=== PATIENT | female | born 1950 | race Caucasian/White ===

== ENCOUNTER 2017-02-15 10:41 | Outpatient (CLI) | payer MEDICARE ==
--- NOTE | 2017-03-10 09:16 | MMO ---
BILATERAL SCREENING MAMMOGRAM: Date: 02/15/17 INDICATION: Annual exam. COMPARISON: None available. Outside mammograms were not received and are unavailable for comparison. FINDINGS: This will serve as the patient's new baseline examination at [facility]. Interpretation of this exam was assisted with computer-aided detection. There is a 1.5 cm spiculated mass seen within the left breast 9 o'clock position, posterior depth. Th ere is a focal region of architectural distortion seen within the right breast 9 o'clock position, an terior depth. There are benign scattered densities bilaterally. There are benign-appearing calcifications bilateral ly. There are small intramammary lymph nodes seen within the upper outer aspects of both breasts. IMPRESSION: BIRADS 0: Incomplete: Need Additional Imaging Evaluation and/or Prior Mammograms for Comparison There is a spiculated mass within the left breast 9 o'clock position, posterior depth, measuring 1.5 cm, that is suspicious. Recommend additional spot magnification compression view in the CC and MLO pr ojection. One ML projection is also recommended of the left breast. Ultrasound will likely be necessa ry for additional characterization. There is a focal area of architectural distortion seen within the right breast 9 o'clock position, an terior depth. There are numerous surrounding benign-appearing densities throughout the right breast. This is adjacent to this area of architectural distortion and may reflect adjacent cysts. Spot magnif ication compression views in the CC and MLO projection within this location is recommended. A LM proj ection of the right breast would be helpful. Ultrasound may be necessary for further evaluation. The facility will notify the patient of the need for additional imaging services. POS: YUDY
== END 2017-02-15 10:42 | disposition home or self-care (01) ==
LOC: MAMMO 10:41
PROVIDERS: ATTEND Family Medicine
DX: Z12.31 Encounter for screening mammogram for malignant neoplasm of breast (principal); N63.20 Unspecified lump in the left breast, unspecified quadrant
CPT/HCPCS: 77067; G0202

== ENCOUNTER 2018-01-31 14:53 | Outpatient (CLI) | payer MEDICARE ==
--- NOTE | 2018-01-31 16:13 | ULT ---
LIMITED LEFT BREAST ULTRASOUND: Date: 01/31/18 PROVIDED CLINICAL HISTORY: Abnormal mammogram. FINDINGS: Limited sonographic interrogation was performed of the left breast in the region of mammographic conc siva. Multiple simples cysts are seen in addition to occasional debris-filled cysts. At the 9 o'clock position of the left breast, far posteriorly in the region of the chest wall, is a poorly defined, hy poechoic mass with associated shadowing measuring about 1.0 cm. This is felt to correspond to the [facility] mogram finding. IMPRESSION: BIRADS 5: Highly Suggestive of Malignancy Ultrasound guided biopsy is recommended. Results and recommendations discussed with the patient, who voiced understanding. POS: YUDY
== END 2018-01-31 14:54 | disposition home or self-care (01) ==
LOC: BICMAMMO 14:53
PROVIDERS: ATTEND Family Medicine
DX: R92.8 Other abnormal and inconclusive findings on diagnostic imaging of breast (principal); Z80.3 Family history of malignant neoplasm of breast
CPT/HCPCS: 76642; 77066; G0279

== ENCOUNTER → 2018-02-02 | Day surgery (SDC) | payer MEDICARE ==
--- NOTE | 2018-02-02 14:50 | ULT ---
ULTRASOUND GUIDED LEFT BREAST BIOPSY: INDICATION: Left breast lesion in 9 o'clock position. COMPARISON: Diagnostic evaluation dated 01/31/2018. TECHNIQUE: Informed consent was obtained. Preprocedural ultrasound demonstrated the suspicious hypoechoic mass within the left breast 9 o'clock position. The left breast was sterilely prepped and draped. Buffer ed 1% Lidocaine was administered to the overlying subcutaneous tissues. Under ultrasound guidance, a 14-gauge core biopsy needle was guided down to the level of the lesion. Three separate core samples were obtained. Following the third core sample, a biopsy clip was placed adjacent to the lesion. P ressure was held at the biopsy site until hemostasis was obtained. The patient tolerated the procedu re without difficulty. The patient is to have followup left breast diagnostic mammograms to confirm clip placement. IMPRESSION: BIRADS category 5 - highly suggestive of malignancy - status post ultrasound-guided core biopsy. Gissel iting pathology results. POS: YUDY
== END ==
LOC: BICULT 13:03
PROVIDERS: ATTEND Family Medicine
PROC: 0HBU3ZX Excision of Left Breast, Percutaneous Approach, Diagnostic (ICD-10-PCS; principal; 2018-02-02)
DX: C50.812 Malignant neoplasm of overlapping sites of left female breast (principal)
CPT/HCPCS: 19100; 76942; 88305; 88341; 88342; 88360; 88361

== ENCOUNTER 2018-04-10 09:58 | Outpatient (CLI) | payer MEDICARE ==
[2018-04-10 11:38] LABS: #Basophils 0.1 thou/uL (0.0-0.2); #Eosinphils 0.4 thou/uL (0.0-0.7); #Lymphocytes 2.7 thou/uL (1.20-3.40); #Monocytes 0.7 thou/uL (0.11-0.59); #Neutrophils 3.2 thou/uL (1.40-6.50); %Basophils 1.3 % (0.0-1.0); %Eosinophils 5.2 % (0.0-10.0); %Lymphocytes 38.3 % (21.0-51.0); %Monocytes 9.3 % (0.0-10.0); %Neutrophils 45.9 % (42.0-75.0); Mean Corpuscular HGB CONC 33.4 g/dL (32.0-36.0); Mean Corpuscular Hemoglobin 30.1 pg (27.0-31.0); Mean Corpuscular Volume 90.1 fL (78.0-98.0); Mean Platelet Volume 7.3 fL (7.4-10.4); Platelet Count 266 thou/uL (130-400); RBC Distribution Width 11.3 % (11.5-14.5); Red Blood Cell (RBC) Count 4.33 mill/uL (4.20-5.40); White Blood Cell (WBC) Count 7.1 thou/uL (4.8-10.8)
[2018-04-10 11:53] LABS: Anion Gap 12 mmol/L (10-20); BUN (Urea Nitrogen) 17 mg/dL (9.8-20.1); Calc. Creatinine Clearance 0 mL/min (70-130); Calcium 9.5 mg/dL (7.8-10.44); Carbon Dioxide 24 mmol/L (23-31); Chloride 107 mmol/L (98-107); Estimated GFR-MDRD 68; Glucose 96 mg/dL (80-115); Potassium 4.4 mmol/L (3.5-5.1); Sodium 139 mmol/L (136-145)
== END 2018-04-10 09:59 | disposition home or self-care (01) ==
LOC: LABBT 09:58
PROVIDERS: ATTEND Surgery
DX: Z01.812 Encounter for preprocedural laboratory examination (principal); C50.912 Malignant neoplasm of unspecified site of left female breast
CPT/HCPCS: 80048; 85025

== ENCOUNTER 2018-04-21 07:23 | Day surgery (SDC) | payer MEDICARE ==
[2018-04-10 10:39] VITALS: BMI 38.9
[2018-04-21] MEDS ORDERED: CEFAZOLIN 2 GM/50 ML BAG ONE (09:47)
[2018-04-21] MEDS ORDERED: Isosulfan Blue 50 MG/5 ML VIAL ONE (11:06)
[2018-04-21] MEDS ORDERED: Bupivacaine/Epinephrine 0.25% 30 ML VIAL ONE (11:06)
[2018-04-21] MEDS ORDERED: Fentanyl 250 MCG/5 ML VIAL ONE (11:08)
--- NOTE | 2018-04-21 11:56 | NM ---
LYMPHOSCINTIGRAPHY LEFT BREAST: HISTORY: Left breast cancer. FINDINGS: After explaining the procedure and answering all questions, the periareolar skin of the left breast w as carefully cleansed. Sterile technique was then used to inject a total volume of 1 cc into the sonia mis at the periareolar 12 o'clock, 6 o'clock, 3 o'clock, and 9 o'clock positions of the left breast. Injection sites were carefully massaged by the patient. Immediate imaging showed uptake of radiotracer at 2 foci of the axillary tail of the left breast. The skin over the lymph nodes was marked. The patient tolerated the procedure well and was transferr ed to day surgery in good condition. IMPRESSION: Technically successful lymphoscintigraphy left breast revealing 2 axillary tail lymph nodes. POS: YUDY
[2018-04-21] MEDS ORDERED: Fentanyl 100 MCG/2 ML VIAL ONE (15:14)
[2018-04-21] MEDS ORDERED: HYDROcodone/Acetaminophen 5/325 mg Tablet ONE (16:23)
[2018-04-21] MEDS ORDERED: Ondansetron PF 4 MG/2 ML Vial ONE (16:45)
[2018-04-21] MEDS ORDERED: Lidocaine 1% PF 5 ML VIAL ONE (16:45)
[2018-04-21] MEDS ORDERED: PROPOFOL 200 MG/20 ML VIAL ONE (16:45)
[2018-04-21] MEDS ORDERED: Dexamethasone 20 MG/5 ML VIAL ONE (16:45)
[2018-04-21] MEDS ORDERED: Glycopyrrolate 0.2 MG/ML 5 ML SYRINGE ONE (16:45)
--- NOTE | 2018-04-24 16:50 | MMO ---
SURGICAL SPECIMEN: Four images of the surgical specimen are submitted for interpretation. The last image demonstrates a spiculated mass with associated biopsy clip. Findings were conveyed to Dr. Plata at the time of t he presentation of the specimen radiograph. POS: YUDY
--- NOTE | 2018-04-25 09:43 | OP ---
DATE OF PROCEDURE: 04/21/2018 PROCEDURE PERFORMED: Left breast ultrasound-guided excisional biopsy and sentinel lymph node biopsy. PREOPERATIVE DIAGNOSIS: Left breast cancer. POSTOPERATIVE DIAGNOSIS: Left breast cancer. HISTORY OF PRESENT ILLNESS: Ms. Daniel is a 67-year-old woman who has biopsy- proven invasive ductal carcinoma of the left breast. She has decided to undergo lumpectomy and sentinel lymph node biopsy. DESCRIPTION OF PROCEDURE: After informed consent was obtained and appropriate preoperative antibiotics were administered, the patient was taken to the operating room, where she was placed in supine position and general anesthesia was administered. Lymphazurin injected subdermally in the retroareolar area and the breast massaged for 5 minutes. She was prepped and draped in a standard sterile fashion and local anesthesia was infused through skin and subcutaneous tissues at the lower edge of the hair-bearing skin of the left axilla and a skin incision was made. Dissection was carried down to the true axilla and the Neoprobe used to examine the axillary contents. An area of increased activity was identified and a small normal-appearing lymph node encountered. This was blue in color and was dissected free and a target count obtained, which was 161. This was sent as sentinel lymph node #1. An additional area of increased activity adjacent to the first sentinel lymph node was identified. This was dissected free and had a target count of 69, but it was not blue in color. This was sent as sentinel lymph node #2. A third area of increased count was identified. A blue lymph node was dissected free and had a target count of 134. This was sent as sentinel lymph node #3. The remainder of the axilla was carefully examined and no blue or active lymph nodes were identified in the remainder of the axilla. Hemostasis was verified and the wound was closed with 3-0 subcutaneous and 4-0 subcuticular sutures. Attention was then turned to the left breast mass. The hypoechoic mass was identified and a wire placed under ultrasound guidance immediately adjacent to the mass. Local anesthesia was infused and a circumareolar incision made. Dissection was carried down around the wire; however, the wire was felt to displace and pull back. Attempts were made to dissect out beyond the original placement of the wire with a rim of normal tissue. The specimen was excised and marked for orientation for pathology. However, specimen radiographs did not show the biopsy clip or mass within the specimen. The wound was palpated and a nodular area felt in the posterior portion of the wound. On ultrasound, this area appeared hypoechoic, so this was excised and sent as an extended posterior margin. The wound was then again examined and on ultrasound, an additional hypoechoic area was identified in the posterior/superior area and this was sent as an extended posterosuperior margin. The clip was identified in this posterosuperior specimen. The wound was then carefully palpated. No other nodular or abnormal feeling areas were found and on ultrasound, no additional hypoechoic or abnormal areas were seen. The wound was irrigated and hemostasis obtained using Bovie electrocautery. Additional local anesthesia was infused circumferentially for postoperative pain management. The subcutaneous tissues were reapproximated with 3-0 Monocryl suture and the skin was closed with 4-0 Monocryl suture. Additional local anesthesia was infused into the biopsy cavity and Dermabond dressings were placed at both areas. The patient was extubated and taken to Recovery in good condition. ESTIMATED BLOOD LOSS: Minimal. COMPLICATIONS: There were no complications. SPECIMEN: [place] lymph nodes and left breast mass with extended posterior and extended posterosuperior margin. Job ID: [id number] [facility]
== END 2018-04-21 17:00 | disposition home or self-care (01) ==
LOC: SDC 07:23
PROVIDERS: ATTEND Surgery
PROC: 0HBU0ZZ Excision of Left Breast, Open Approach (ICD-10-PCS; principal; 2018-04-21)
PROC: 07B60ZX Excision of Left Axillary Lymphatic, Open Approach, Diagnostic (ICD-10-PCS; 2018-04-21)
DX: C50.812 Malignant neoplasm of overlapping sites of left female breast (principal); N60.12 Diffuse cystic mastopathy of left breast; E78.00 Pure hypercholesterolemia, unspecified; Z17.0 Estrogen receptor positive status [ER+]; Z79.82 Long term (current) use of aspirin; Z79.899 Other long term (current) drug therapy
CPT/HCPCS: 19301; 38525; 38900; 76098; 78195; 88307; 88333; 88334; 88342; A9541; Q9968; J0131; J1100; J2001; J2405; J2704; J3010

== ENCOUNTER 2018-10-13 07:51 | Day surgery (SDC) | payer MEDICARE ==
[2018-10-12 16:15] VITALS: BMI 40.6
[2018-10-13 08:52] LABS: #Basophils 0.1 thou/uL (0.0-0.2); #Eosinphils 0.4 thou/uL (0.0-0.7); #Lymphocytes 1.6 thou/uL (1.20-3.40); #Monocytes 0.5 thou/uL (0.11-0.59); #Neutrophils 2.8 thou/uL (1.40-6.50); %Basophils 1.3 % (0.0-1.0); %Eosinophils 7.2 % (0.0-10.0); %Lymphocytes 29.7 % (21.0-51.0); %Monocytes 8.7 % (0.0-10.0); Hemoglobin 12.6 g/dL (12.0-16.0); Mean Corpuscular HGB CONC 32.4 g/dL (32.0-36.0); Mean Corpuscular Hemoglobin 29.5 pg (27.0-31.0); Mean Corpuscular Volume 91.2 fL (78.0-98.0); Mean Platelet Volume 7.2 fL (7.4-10.4); Platelet Count 232 thou/uL (130-400); RBC Distribution Width 11.1 % (11.5-14.5); Red Blood Cell (RBC) Count 4.26 mill/uL (4.20-5.40); White Blood Cell (WBC) Count 5.3 thou/uL (4.8-10.8)
[2018-10-13 09:16] LABS: Anion Gap 11 mmol/L (10-20); BUN (Urea Nitrogen) 14 mg/dL (9.8-20.1); Calc. Creatinine Clearance 107 mL/min (70-130); Calcium 9.3 mg/dL (7.8-10.44); Carbon Dioxide 26 mmol/L (23-31); Chloride 109 mmol/L (98-107); Estimated GFR-MDRD 71; Glucose 106 mg/dL (80-115); Potassium 3.9 mmol/L (3.5-5.1); Sodium 142 mmol/L (136-145)
[2018-10-13] MEDS ORDERED: Bupivacaine/Epinephrine 0.25% 30 ML VIAL ONE (11:38)
[2018-10-13] MEDS ORDERED: Famotidine/PF 20 mg/2ml Vial ONE (11:42)
[2018-10-13] MEDS ORDERED: Fentanyl 100 MCG/2 ML VIAL ONE ×2 (11:42→13:23)
--- NOTE | 2018-10-14 08:30 | PDOC.OP ---
Operative Note - Operative Note Operative Note: PROCEDURE: Incision and drainage and debridement of left breast seroma with imbrication of seroma cavity SURGEON: Kemi Plata M.D. DATE: 10/13/28 PREOPERATIVE DIAGNOSIS: Multiply recurrent left breast seroma POSTOPERATIVE DIAGNOSIS: Multiply recurrent left breast seroma HISTORY: Patient is status post left breast lumpectomy and radiation therapy for breast cancer. She developed a symptomatic seroma which has been drained on multiple occasions but continues to recur. Operative drainage debridement imbrication was recommended. PROCEDURE IN DETAIL: After informed consent was obtained and appropriate preoperative antibiotics administered the patient was taken to the operating room where she was placed in supine position and anesthesia was administered. She was prepped and draped in standard sterile fashion and local anesthesia infused the skin and subcutaneous tissues overlying the seroma. The previous lumpectomy incision was incised and the seroma completely drained. There was a chronic seroma cavity with serosal irritation of the lining. The lining was stripped using a curet and then abraded with electrocautery. During this process at least to the previously placed biopsy cavity clips were removed. Due to the stiffness of the chronic seroma cavity capsule, and the significant defect created in the breast with simple collapse of the cavity, the decision was made to mobilize flaps medially and laterally to allow imbrication of the cavity while maintaining a normal breast contour. The subcutaneous tissues were incised with electrocautery proximally and medially near the level of the skin and above the level of the pectoralis muscle. This allowed the sides of the cavity to come together without tension. Additional local anesthesia was infused circumferentially for postoperative pain management and hemostasis at the operative site was confirmed.. The cavity was then imbricated with a running absorbable V- lock suture with excellent approximation of the tissues. The subcutaneous tissues were then reapproximated with running absorbable suture and the skin was closed with a running subcuticular Monocryl 4-0 suture. Dermabond dressings were applied and once this was dry a fluffs compression dressing was placed and secured to the skin with tape. The patient was taken to recovery in good condition. Estimated blood loss is minimal. There were no complications. There were no specimens.
== END 2018-10-13 15:20 | disposition home or self-care (01) ==
LOC: SDC 07:51
PROVIDERS: ATTEND Surgery
PROC: 0J9630Z Drainage of Chest Subcutaneous Tissue and Fascia with Drainage Device, Percutaneous Approach (ICD-10-PCS; principal; 2018-10-13)
DX: M96.843 Postprocedural seroma of a musculoskeletal structure following other procedure (principal); Z88.5 Allergy status to narcotic agent; Z79.82 Long term (current) use of aspirin; Z79.899 Other long term (current) drug therapy
CPT/HCPCS: 36415; 80048; 85025; J0131; J0690; J3010; S0028

== ENCOUNTER 2019-02-02 08:50 | Outpatient (CLI) | payer MEDICARE ==
--- NOTE | 2019-02-02 10:05 | MMO ---
Bilateral MAMMO Bilat Diag [facility]. CLINICAL HISTORY: Patient is 68 years old and is seen for diagnostic exam. The patient has the following family history of breast cancer: maternal grandmother, malignant (generic) and maternal aunt, malignant (generic). The patient has a history of malignant (generic) in the left breast in 2018. The patient has a history of left Lumpectomy in April, - malignant, left Ultrasound Guided Core Biopsy in 2017 - malignant and left needle biopsy in 2014 - benign. VIEWS: The views performed were: bilateral craniocaudal with tomosynthesis; bilateral mediolateral oblique with tomosynthesis; and bilateral mediolateral with tomosynthesis. FILMS COMPARED: The present examination has been compared to prior imaging studies performed at [facility] on 01/31/2018 and 02/02/2019, and at [facility] on 02/15/2017. This study has been interpreted with the assistance of computer-aided detection. MAMMOGRAM FINDINGS: The breasts are heterogeneously dense, which could obscure a lesion on mammography. Finding 1: Nodularity is stable in the right breast. Finding 2: There is a mass in the left lower inner breast which shows mobile internal echoes on US and likely due to hematoma/seroma with blood products. IMPRESSION: FINDING 1: FINDING IN THE RIGHT BREAST IS BENIGN. FINDING 2: FINDING IN THE LEFT BREAST IS PROBABLY BENIGN. FOLLOW-UP IN 6 MONTHS IS RECOMMENDED. THE RESULTS OF THIS EXAM WERE SENT TO THE PATIENT. ACR BI-RADS Category 3 - Probably benign finding - short interval follow-up suggested. [facility] will notify the patient of the need for additional imaging services. MAMMOGRAPHY NOTE: 1. A negative mammogram report should not delay a biopsy if a dominant of clinically suspicious mass is present. 2. Approximately 10% to 15% of breast cancers are not detected by mammography. 3. Adenosis and dense breasts may obscure an underlying neoplasm. Reported by: MAMTA ZEPEDA MD Electonically Signed: [id number]
--- NOTE | 2019-02-02 11:41 | ULT ---
LEFT BREAST ULTRASOUND: Date: 02/02/19 HISTORY: Abnormal mammogram. FINDINGS: Sonographic evaluation of the left lower inner breast demonstrates a 5.6 cm irregular fluid collectio n with internal mobile echoes and no flow, likely representing a hematoma/seroma with blood products from surgery in this region. IMPRESSION: BI-RADS Category 3 - Probably benign findings. Recommend follow-up left diagnostic mammogram and ultr asound in 6 months. POS: OFF
== END 2019-02-02 08:51 | disposition home or self-care (01) ==
LOC: BICMAMMO 08:50
PROVIDERS: ATTEND Surgery
DX: Z08 Encounter for follow-up examination after completed treatment for malignant neoplasm (principal); Z85.3 Personal history of malignant neoplasm of breast
CPT/HCPCS: 76642; 77066; G0279

== ENCOUNTER 2020-03-12 08:58 | Outpatient (CLI) | payer MEDICARE ==
--- NOTE | 2020-03-12 09:40 | MMO ---
Bilateral MAMMO Bilat Diag [facility]. CLINICAL HISTORY: Patient is 69 years old and is seen for diagnostic exam. The patient has the following family history of breast cancer: maternal grandmother, malignant (generic) and maternal aunt, malignant (generic). The patient has a history of malignant (generic) in the left breast in 2018. The patient has a history of left Lumpectomy in April, - malignant, left Ultrasound Guided Core Biopsy in 2018 - malignant and left needle biopsy in 2014 - benign. VIEWS: The views performed were: . FILMS COMPARED: The present examination has been compared to prior imaging studies performed at [facility] on 02/02/2019 and 08/30/2019. This study has been interpreted with the assistance of computer-aided detection. MAMMOGRAM FINDINGS: The breasts are heterogeneously dense, which could obscure a lesion on mammography. Mass like density in the left breast consistent with post op seroma is stable. In the right breast, there are no suspicious masses, calcifications or areas of architectural distortion. IMPRESSION: FINDING IN THE LEFT BREAST IS PROBABLY BENIGN. FOLLOW-UP IN 6 MONTHS IS RECOMMENDED. THE RESULTS OF THIS EXAM WERE SENT TO THE PATIENT. ACR BI-RADS Category 3 - Probably benign finding - short interval follow-up suggested. [facility] will notify the patient of the need for additional imaging services. MAMMOGRAPHY NOTE: 1. A negative mammogram report should not delay a biopsy if a dominant of clinically suspicious mass is present. 2. Approximately 10% to 15% of breast cancers are not detected by mammography. 3. Adenosis and dense breasts may obscure an underlying neoplasm. Reported by: MAMTA ZEPEDA MD Electonically Signed: [id number]
== END 2020-03-12 08:59 | disposition home or self-care (01) ==
LOC: BICMAMMO 08:58
PROVIDERS: ATTEND Surgery
DX: Z08 Encounter for follow-up examination after completed treatment for malignant neoplasm (principal); Z85.3 Personal history of malignant neoplasm of breast
CPT/HCPCS: 77066; G0279

== ENCOUNTER 2020-10-29 09:30 | Outpatient (CLI) | payer MEDICARE | END 2020-10-29 09:31 | disposition home or self-care (01) | LOC: BICMAMMO 09:30 | PROVIDERS: ATTEND Surgery | DX: C50.812 Malignant neoplasm of overlapping sites of left female breast (principal); C50.919 Malignant neoplasm of unspecified site of unspecified female breast; N63.20 Unspecified lump in the left breast, unspecified quadrant | CPT/HCPCS: 77065; G0279 ==